=== PATIENT | female | born 1935 | race Caucasian/White ===

== ENCOUNTER 2019-02-26 08:58 | Inpatient (IN) | payer MEDICARE ==
[~2019-02-26] VITALS: Ht 165.1 cm; Wt 70.8 kg
[~2019-02-26 08:58] MED LIST: AMLO5TAB10 PO; ASPI-482 PO; CALC600T4 PO; FISH1CAP PO; FOLI1TAB16 PO; HYDR12.575 PO; MELO15TA23 PO; MULT1TAB6 PO; TRAM50TA PO; VALS1TAB22 PO
--- NOTE | 2019-02-26 09:12 | PHYS DOC ---
Past Medical History Past Medical History: Arthritis, Hypertension Past Surgical History: Cholecystectomy, Hysterectomy, Knee Replacement Additional Past Surgical Histo: colon resection, eye surgery Alcohol Use: None Drug Use: None Adult General Chief Complaint Chief Complaint: ABDOMINAL PAIN HPI HPI Patient is a 84 year old female that presents with dysuria and urinary frequency this been ongoing for several days. Subjective fever at home. The patient lives at home alone. The patient rates her pain as 5 out of 10 in severity and states sharp, the patient took a tramadol earlier due to her pain. Patient reports that she has a history of urinary tract infections. Review of Systems Review of Systems Constitutional: Reports fever or chills [] Eyes: Denies change in visual acuity, redness, or eye pain [] HENT: Denies nasal congestion or sore throat [] Respiratory: Denies cough or shortness of breath [] Cardiovascular: No additional information not addressed in HPI [] GI: Denies abdominal pain, nausea, vomiting, bloody stools or diarrhea [] : Reports dysuria and frequency. Musculoskeletal: Denies back pain or joint pain [] Integument: Denies rash or skin lesions [] Neurologic: Denies headache, focal weakness or sensory changes [] Endocrine: Denies polyuria or polydipsia [] Complete systems were reviewed and found to be within normal limits, except as documented in this note. Current Medications Current Medications Current Medications Medications (Trade) Dose Ordered Sig/Marino Start Time Stop Time Status Last Admin Dose Admin Ceftriaxone Sodium (Rocephin) 1 gm 1X ONCE 02/26/19 10:00 02/26/19 10:01 DC 02/26/19 10:06 1 GM Morphine Sulfate (Morphine Sulfate) 2 mg 1X ONCE 02/26/19 09:15 02/26/19 09:16 DC 02/26/19 09:33 2 MG Ondansetron HCl (Zofran) 4 mg 1X ONCE 02/26/19 09:15 02/26/19 09:16 DC 02/26/19 09:33 4 MG Allergies Allergies Allergies Coded Allergies Type Severity Reaction Last Updated Verified Sulfa (Sulfonamide Antibiotics) Allergy Intermediate 04/11/17 Yes levofloxacin Allergy Intermediate 04/11/17 Yes sucralfate Allergy Intermediate UNSURE 02/26/19 Yes I S O L A T I O N *CONTACT* Allergy Unknown 04/13/17 Yes Physical Exam Physical Exam Constitutional: Well developed, well nourished, no acute distress, non-toxic appearance. [] HENT: Normocephalic, atraumatic, bilateral external ears normal, oropharynx moist, no oral exudates, nose normal. [] Eyes: PERRLA, EOMI, conjunctiva normal, no discharge. [] Neck: Normal range of motion, no tenderness, supple, no stridor. [] Cardiovascular:Heart rate regular rhythm, no murmur [] Lungs & Thorax: Bilateral breath sounds clear to auscultation [] Abdomen: Bowel sounds normal, soft, lower pelvic tenderness, midline, no masses, no pulsatile masses. [] Skin: Warm, dry, no erythema, no rash. [] Back: No tenderness, no CVA tenderness. [] Extremities: No tenderness, no cyanosis, no clubbing, ROM intact, no edema. [] Neurologic: Alert and oriented X 3, normal motor function, normal sensory function, no focal deficits noted. [] Psychologic: Affect normal, judgement normal, mood normal. [] Current Patient Data Vital Signs Vital Signs Date Time Temp Pulse Resp B/P (MAP) Pulse Ox O2 Delivery O2 Flow Rate FiO2 02/26/19 10:06 16 02/26/19 09:07 97.6 70 159/70 (99) 99 Room Air 97.6 Lab Values Laboratory Tests Test 02/26/19 09:20 White Blood Count 6.4 x10^3/uL (4.0-11.0) Red Blood Count 4.15 x10^6/uL (3.50-5.40) Hemoglobin 13.2 g/dL (12.0-15.5) Hematocrit 38.3 % (36.0-47.0) Mean Corpuscular Volume 92 fL (79-100) Mean Corpuscular Hemoglobin 32 pg (25-35) Mean Corpuscular Hemoglobin Concent 35 g/dL (31-37) Red Cell Distribution Width 13.0 % (11.5-14.5) Platelet Count 210 x10^3/uL (140-400) Neutrophils (%) (Auto) 72 % (31-73) Lymphocytes (%) (Auto) 15 % (24-48) L Monocytes (%) (Auto) 10 % (0-9) H Eosinophils (%) (Auto) 2 % (0-3) Basophils (%) (Auto) 1 % (0-3) Neutrophils # (Auto) 4.6 x10^3/uL (1.8-7.7) Lymphocytes # (Auto) 1.0 x10^3/uL (1.0-4.8) Monocytes # (Auto) 0.6 x10^3/uL (0.0-1.1) Eosinophils # (Auto) 0.1 x10^3/uL (0.0-0.7) Basophils # (Auto) 0.0 x10^3/uL (0.0-0.2) Urine Collection Type Unknown Urine Color Yellow Urine Clarity Clear Urine pH 7.0 Urine Specific Preston <=1.005 Urine Protein Negative mg/dL (NEG-TRACE) Urine Glucose (UA) Negative mg/dL (NEG) Urine Ketones (Stick) Negative mg/dL (NEG) Urine Blood Large (NEG) Urine Nitrite Negative (NEG) Urine Bilirubin Negative (NEG) Urine Urobilinogen Dipstick 0.2 mg/dL (0.2 mg/dL) Urine Leukocyte Esterase Large (NEG) Urine RBC 3-5 /HPF (0-2) Urine WBC >40 /HPF (0-4) Urine Squamous Epithelial Cells Mod /LPF Urine Bacteria Moderate /HPF (0-FEW) Sodium Level 138 mmol/L (136-145) Potassium Level 4.0 mmol/L (3.5-5.1) Chloride Level 101 mmol/L (98-107) Carbon Dioxide Level 28 mmol/L (21-32) Anion Gap 9 (6-14) Blood Urea Nitrogen 12 mg/dL (7-20) Creatinine 0.9 mg/dL (0.6-1.0) Estimated GFR (Cockcroft-Gault) 59.8 BUN/Creatinine Ratio 13 (6-20) Glucose Level 76 mg/dL (70-99) Calcium Level 9.1 mg/dL (8.5-10.1) Total Bilirubin 0.6 mg/dL (0.2-1.0) Aspartate Amino Transferase (AST) 21 U/L (15-37) Alanine Aminotransferase (ALT) 16 U/L (14-59) Alkaline Phosphatase 51 U/L (46-116) Total Protein 6.7 g/dL (6.4-8.2) Albumin 3.6 g/dL (3.4-5.0) Albumin/Globulin Ratio 1.2 (1.0-1.7) Lipase 112 U/L (73-393) Laboratory Tests 02/26/19 09:20 Laboratory Tests 02/26/19 09:20 EKG EKG [] Radiology/Procedures Radiology/Procedures [] Course & Med Decision Making Course & Med Decision Making Pertinent Labs and Imaging studies reviewed. (See chart for details) Will obtain labs, and fluids. Urine shows >40 wbcs. Will treat with rocephin and contact hospitalist for admission. Discussed with Dr. Bruce at [phone] who accepts admission into hospital. Dragon Disclaimer Dragon Disclaimer This electronic medical record was generated, in whole or in part, using a voice recognition dictation system. Departure Departure Impression: Primary Impression: Urinary tract infection Disposition: ADMITTED INPATIENT Admitting Physician: JENNI Condition: STABLE Referrals: MANSOOR SRINIVASAN Jr, MD (PCP) Problem Qualifiers Primary Impression: Urinary tract infection Urinary tract infection type: acute cystitis Hematuria presence: without hematuria Qualified Codes: N30.00 - Acute cystitis without hematuria MIHAELA GROVER APRN Feb 26, 2019 09:12
[2019-02-26] MEDS ORDERED: MORPHINE SULFATE 2 MG/ML VIAL. IV ONE (09:15)
[2019-02-26] MEDS ORDERED: ONDANSETRON PF 4 MG/2 ML VIAL. IV ONE (09:15)
[2019-02-26 09:33] LABS: BASO % 1 % (0-3); BILIRUBIN,URINE NEGATIVE (NEG); CLARITY,URINE CLEAR; COLOR,URINE YELLOW; EOS # 0.1 x10^3/uL (0.0-0.7); EOS % 2 % (0-3); HEMATOCRIT 38.3 % (36.0-47.0); HEMOGLOBIN 13.2 g/dL (12.0-15.5); LYMPH % 15 % (24-48); MEAN CORPUSCULAR HEMOGLOBIN 32 pg (25-35); MEAN CORPUSCULAR HGB CONC 35 g/dL (31-37); MEAN CORPUSCULAR VOLUME 92 fL (79-100); MONO # 0.6 x10^3/uL (0.0-1.1); MONO % 10 % (0-9); NEUT # 4.6 x10^3/uL (1.8-7.7); NEUT % 72 % (31-73); NITRITE,URINE NEGATIVE (NEG); PLATELET COUNT 210 x10^3/uL (140-400); PROTEIN,URINE NEGATIVE (NEG-TRACE); RED BLOOD COUNT 4.15 x10^6/uL (3.50-5.40); UROBILINOGEN,URINE 0.2 mg/dL (0.2 mg/dL); WHITE BLOOD COUNT 6.4 x10^3/uL (4.0-11.0)
[2019-02-26 09:42] LABS: CALCIUM 9.1 mg/dL (8.5-10.1); CREATININE 0.9 mg/dL (0.6-1.0); GFR 59.8
[2019-02-26 09:46] LABS: SQUAMOUS EPITHELIAL CELL,UR MOD /LPF
[2019-02-26 09:47] LABS: BACTERIA,URINE MODERATE /HPF (0-FEW); WBC,URINE >40 /HPF (0-4)
[2019-02-26 09:48] LABS: ALBUMIN 3.6 g/dL (3.4-5.0); ALBUMIN/GLOBULIN RATIO 1.2 (1.0-1.7); TOTAL BILIRUBIN 0.6 mg/dL (0.2-1.0); TOTAL PROTEIN 6.7 g/dL (6.4-8.2)
[2019-02-26] MEDS ORDERED: cefTRIAXone IV Push 1 GM VIAL. IVP ONE (10:00)
--- NOTE | 2019-02-26 10:26 | PDOC1 ---
History and Physical Date of Admission Date of Admission DATE: 02/26/19 TIME: 10:26 Identification/Chief Complaint Chief Complaint SEEN IN ER , 84 year old female that presents with moderate -severe dysuria and urinary frequency this been ongoing for several days. fever at home. The patient lives at home alone., rates her suprapubic pain as 5 out of 10 in severity and states sharp, the patient took a tramadol earlier due to her pain. reports that she has a history of urinary tract infections. Past Medical History Past Medical History Past Medical History Past Medical History: Arthritis, Hypertension Past Surgical History: Cholecystectomy, Hysterectomy, Knee Replacement Additional Past Surgical Histo: colon resection, eye surgery Alcohol Use: None Drug Use: None family hx htn Cardiovascular: HTN Pulmonary: No pertinent hx CENTRAL NERVOUS SYSTEM: Other GI: Diverticulosis, GERD Heme/Onc: No pertinent hx Hepatobiliary: No pertinent hx Psych: No pertinent hx Musculoskeletal: Osteoarthritis Rheumatologic: No pertinent hx Infectious disease: No pertinent hx Renal/: No pertinent hx Endocrine: No pertinent hx Past Surgical History Past Surgical History: Appendectomy, Cholecystectomy, Cataract Removal, Total knee replacement, Colon Resection, Other Family History Family History: Hypertension Social History Smoke: No ALCOHOL: none Drugs: None Current Problem List Problem List Problems Medical Problems: (1) Urinary tract infection Status: Acute Current Medications Current Medications Current Medications Morphine Sulfate (Morphine Sulfate) 2 mg 1X ONCE IV Last administered on 02/26/19at 09:33; Start 02/26/19 at 09:15; Stop 02/26/19 at 09:16; Status DC Ondansetron HCl (Zofran) 4 mg 1X ONCE IV Last administered on 02/26/19at 09:33; Start 02/26/19 at 09:15; Stop 02/26/19 at 09:16; Status DC Ceftriaxone Sodium (Rocephin) 1 gm 1X ONCE IVP Last administered on 02/26/19at 10:06; Start 02/26/19 at 10:00; Stop 02/26/19 at 10:01; Status DC Active Scripts Active Reported Folic Acid 1 Mg Tablet 1 Tab PO HS Fish Oil 1,200 Mg Fish Oil (Fish Oil/Dha/Epa) 1 Each Capsule 1 Each PO HS Calcium (Calcium Carbonate) 600 Mg Tablet 600 Mg PO HS Centrum Complete Multivit Tab (Multivitamin/Iron/Folic Acid) 1 Each Tablet 1 Each PO HS Aspir 81 (Aspirin) 81 Mg Tablet.dr 81 Mg PO QODAY Amlodipine Besylate 5 Mg Tablet 5 Mg PO Hydrochlorothiazide Capsule (Hydrochlorothiazide) 12.5 Mg Capsule 12.5 Mg PO QODAY Diovan Hct 320-25 Mg Tablet (Valsartan/Hydrochlorothiazide) 1 Each Tablet 1 Each PO Allergies Allergies: Coded Allergies: Sulfa (Sulfonamide Antibiotics) (Verified Allergy, Intermediate, 04/11/17) levofloxacin (Verified Allergy, Intermediate, 04/11/17) sucralfate (Verified Allergy, Intermediate, UNSURE, 02/26/19) I S O L A T I O N *CONTACT* (Verified Allergy, Unknown, 04/13/17) mrsa ROS Review of System Review of Systems Review of Systems Constitutional: Reports fever // chills [] Eyes: Denies change in visual acuity, redness, or eye pain [] HENT: Denies nasal congestion or sore throat [] Respiratory: Denies cough or shortness of breath [] Cardiovascular: No additional information not addressed in HPI [] GI: Denies abdominal pain, nausea, vomiting, bloody stools or diarrhea [] : Reports dysuria and frequency. Musculoskeletal: Denies back pain or joint pain [] Integument: Denies rash or skin lesions [] Neurologic: Denies headache, focal weakness or sensory changes [] Endocrine: Denies polyuria or polydipsia [] 14 PT systems were reviewed and found to be within normal limits, except as documented Respiratory: No: Cough, Hemoptysis, Orthopnea, Pleuritic Pain, Shortness of breath, SOB with excertion, Sputum Changes, Stridor, Tachypnea, Wheezing, Other Gastrointestinal: Yes Abdominal Pain Musculoskeletal: Yes Joint Stiffness Physical Exam Physical Exam Physical Exam Physical Exam Constitutional: Well developed, well nourished, MILD acute distress, non-toxic appearance. [] HENT: Normocephalic, atraumatic, bilateral external ears normal, oropharynx moist, no oral exudates, nose normal. [] Eyes: PERRLA, EOMI, conjunctiva normal, no discharge. [] Neck: Normal range of motion, no tenderness, supple, no stridor. [] Cardiovascular:Heart rate regular rhythm, no murmur [] Lungs & Thorax: Bilateral breath sounds clear to auscultation [] Abdomen: Bowel sounds normal, soft, lower pelvic tenderness, midline, no masses, no pulsatile masses. [] Skin: Warm, dry, no erythema, no rash. [] Back: No tenderness, no CVA tenderness. [] Extremities: No tenderness, no cyanosis, no clubbing, ROM intact, no edema. [] Neurologic: Alert and oriented X 3, normal motor function, normal sensory function, no focal deficits noted. [] Psychologic: Affect normal, judgement normal, mood normal. [] General: Alert, Oriented X3, Cooperative, mild distress HEENT: PERRLA, EOMI, Mucous membr. moist/pink Lungs: Clear to auscultation, Normal air movement Breasts: Not examined Rectal Exam: not examined PELVIC: Examination not indicated Extremities: No clubbing, No cyanosis Skin: No rashes Neuro: Normal speech, Cranial nerves 3-12 NL Psych/Mental Status: Mental status NL, Mood NL Vitals Vitals Vital Signs Date Time Temp Pulse Resp B/P (MAP) Pulse Ox O2 Delivery O2 Flow Rate FiO2 02/26/19 10:06 16 02/26/19 09:07 97.6 70 159/70 (99) 99 Room Air 97.6 Labs Labs Laboratory Tests Test 02/26/19 09:20 White Blood Count 6.4 x10^3/uL (4.0-11.0) Red Blood Count 4.15 x10^6/uL (3.50-5.40) Hemoglobin 13.2 g/dL (12.0-15.5) Hematocrit 38.3 % (36.0-47.0) Mean Corpuscular Volume 92 fL (79-100) Mean Corpuscular Hemoglobin 32 pg (25-35) Mean Corpuscular Hemoglobin Concent 35 g/dL (31-37) Red Cell Distribution Width 13.0 % (11.5-14.5) Platelet Count 210 x10^3/uL (140-400) Neutrophils (%) (Auto) 72 % (31-73) Lymphocytes (%) (Auto) 15 % (24-48) Monocytes (%) (Auto) 10 % (0-9) Eosinophils (%) (Auto) 2 % (0-3) Basophils (%) (Auto) 1 % (0-3) Neutrophils # (Auto) 4.6 x10^3/uL (1.8-7.7) Lymphocytes # (Auto) 1.0 x10^3/uL (1.0-4.8) Monocytes # (Auto) 0.6 x10^3/uL (0.0-1.1) Eosinophils # (Auto) 0.1 x10^3/uL (0.0-0.7) Basophils # (Auto) 0.0 x10^3/uL (0.0-0.2) Urine Collection Type Unknown Urine Color Yellow Urine Clarity Clear Urine pH 7.0 Urine Specific [place] <=1.005 Urine Protein Negative mg/dL (NEG-TRACE) Urine Glucose (UA) Negative mg/dL (NEG) Urine Ketones (Stick) Negative mg/dL (NEG) Urine Blood Large (NEG) Urine Nitrite Negative (NEG) Urine Bilirubin Negative (NEG) Urine Urobilinogen Dipstick 0.2 mg/dL (0.2 mg/dL) Urine Leukocyte Esterase Large (NEG) Urine RBC 3-5 /HPF (0-2) Urine WBC >40 /HPF (0-4) Urine Squamous Epithelial Cells Mod /LPF Urine Bacteria Moderate /HPF (0-FEW) Sodium Level 138 mmol/L (136-145) Potassium Level 4.0 mmol/L (3.5-5.1) Chloride Level 101 mmol/L (98-107) Carbon Dioxide Level 28 mmol/L (21-32) Anion Gap 9 (6-14) Blood Urea Nitrogen 12 mg/dL (7-20) Creatinine 0.9 mg/dL (0.6-1.0) Estimated GFR (Cockcroft-Gault) 59.8 BUN/Creatinine Ratio 13 (6-20) Glucose Level 76 mg/dL (70-99) Calcium Level 9.1 mg/dL (8.5-10.1) Total Bilirubin 0.6 mg/dL (0.2-1.0) Aspartate Amino Transf (AST/SGOT) 21 U/L (15-37) Alanine Aminotransferase (ALT/SGPT) 16 U/L (14-59) Alkaline Phosphatase 51 U/L (46-116) Total Protein 6.7 g/dL (6.4-8.2) Albumin 3.6 g/dL (3.4-5.0) Albumin/Globulin Ratio 1.2 (1.0-1.7) Lipase 112 U/L (73-393) Laboratory Tests Test 02/26/19 09:20 White Blood Count 6.4 x10^3/uL (4.0-11.0) Red Blood Count 4.15 x10^6/uL (3.50-5.40) Hemoglobin 13.2 g/dL (12.0-15.5) Hematocrit 38.3 % (36.0-47.0) Mean Corpuscular Volume 92 fL (79-100) Mean Corpuscular Hemoglobin 32 pg (25-35) Mean Corpuscular Hemoglobin Concent 35 g/dL (31-37) Red Cell Distribution Width 13.0 % (11.5-14.5) Platelet Count 210 x10^3/uL (140-400) Neutrophils (%) (Auto) 72 % (31-73) Lymphocytes (%) (Auto) 15 % (24-48) Monocytes (%) (Auto) 10 % (0-9) Eosinophils (%) (Auto) 2 % (0-3) Basophils (%) (Auto) 1 % (0-3) Neutrophils # (Auto) 4.6 x10^3/uL (1.8-7.7) Lymphocytes # (Auto) 1.0 x10^3/uL (1.0-4.8) Monocytes # (Auto) 0.6 x10^3/uL (0.0-1.1) Eosinophils # (Auto) 0.1 x10^3/uL (0.0-0.7) Basophils # (Auto) 0.0 x10^3/uL (0.0-0.2) Urine Collection Type Unknown Urine Color Yellow Urine Clarity Clear Urine pH 7.0 Urine Specific [place] <=1.005 Urine Protein Negative mg/dL (NEG-TRACE) Urine Glucose (UA) Negative mg/dL (NEG) Urine Ketones (Stick) Negative mg/dL (NEG) Urine Blood Large (NEG) Urine Nitrite Negative (NEG) Urine Bilirubin Negative (NEG) Urine Urobilinogen Dipstick 0.2 mg/dL (0.2 mg/dL) Urine Leukocyte Esterase Large (NEG) Urine RBC 3-5 /HPF (0-2) Urine WBC >40 /HPF (0-4) Urine Squamous Epithelial Cells Mod /LPF Urine Bacteria Moderate /HPF (0-FEW) Sodium Level 138 mmol/L (136-145) Potassium Level 4.0 mmol/L (3.5-5.1) Chloride Level 101 mmol/L (98-107) Carbon Dioxide Level 28 mmol/L (21-32) Anion Gap 9 (6-14) Blood Urea Nitrogen 12 mg/dL (7-20) Creatinine 0.9 mg/dL (0.6-1.0) Estimated GFR (Cockcroft-Gault) 59.8 BUN/Creatinine Ratio 13 (6-20) Glucose Level 76 mg/dL (70-99) Calcium Level 9.1 mg/dL (8.5-10.1) Total Bilirubin 0.6 mg/dL (0.2-1.0) Aspartate Amino Transf (AST/SGOT) 21 U/L (15-37) Alanine Aminotransferase (ALT/SGPT) 16 U/L (14-59) Alkaline Phosphatase 51 U/L (46-116) Total Protein 6.7 g/dL (6.4-8.2) Albumin 3.6 g/dL (3.4-5.0) Albumin/Globulin Ratio 1.2 (1.0-1.7) Lipase 112 U/L (73-393) VTE Prophylaxis Ordered VTE Prophylaxis Devices: Yes VTE Pharmacological Prophylaxi: Yes Assessment/Plan Assessment/Plan Impression: Urinary tract infection SUPRAPUBIC PAIN HTN PLAN ADMIT EMPERIC IV ANTIBIOTICS BLOOD CULT URINE CULTURE HOME MEDS CONT ct abd/ pelvis IV FLUID SUPPORT, HYDRATION 55 MIN PT EXAM, CHART REVIEW, > 50% OF TIME SPENT WITH EXAM, CHART REVIEW, PT CARE COORDINATION JOSE CRUZ SANTANA MD Feb 26, 2019 10:26
[2019-02-26] MEDS ORDERED: fentaNYL PF VIAL 100 MCG/2 ML VIAL IV PRN (10:30)
[2019-02-26] MEDS ORDERED: ONDANSETRON PF 4 MG/2 ML VIAL. IV PRN ×2 (10:30→11:00)
[2019-02-26 11:00] VITALS: BP 132/54
[2019-02-26] MEDS ORDERED: ALBUTEROL SULFATE 2.5 MG/3 ML NEBU. NEB PRN (11:00)
[2019-02-26] MEDS ORDERED: DOCUSATE SODIUM 100 MG CAPSULE. PO PRN (11:00)
[2019-02-26] MEDS ORDERED: MAG HYDROX/ALUMINUM HYD/SIMETH 30 ML ORAL.SUSP PO PRN (11:00)
[2019-02-26] MEDS ORDERED: cloNIDine HCL 0.1 MG TABLET PO PRN (11:00)
[2019-02-26] MEDS ORDERED: LORazepam 0.5 MG TABLET PO PRN (11:00)
[2019-02-26] MEDS ORDERED: ACETAMINOPHEN 325 MG TABLET. PO PRN (11:00)
[2019-02-26] MEDS ORDERED: 0.9 % SODIUM CHLORIDE 10 ML DISP.SYRIN. IV PRN (11:00)
[2019-02-26] MEDS: LOSARTAN POTASSIUM 50 MG TABLET. PO SCH (12:00)
[2019-02-26] MEDS: amLODIPine BESYLATE 5 MG TABLET PO SCH (12:00)
[2019-02-26] MEDS ORDERED: hydroCHLOROthiazide 12.5 MG CAPSULE PO SCH (12:00)
[2019-02-26] MEDS ORDERED: ASPIRIN ENTERIC COATED 81 MG TABLET.DR. PO SCH (12:00)
[2019-02-26] MEDS: MULTIVITAMIN with MINERAL TABLET. PO SCH (12:00)
[2019-02-26] MEDS: IV NORMAL SALINE 1000ML BAG 1,000 ML IV SCH (12:56)
[2019-02-26] MEDS: ENOXAPARIN 40 MG/0.4 ML SYRINGE. SQ SCH (12:57)
--- NOTE | 2019-02-26 14:55 | RAD ---
Examination: CT ABDOMEN PELVIS WO CONTRAST History: Abdominal pain Comparison/Correlation: 04/14/2017 CT abdomen and pelvis with contrast Findings: Axial images of the abdomen and pelvis were obtained without contrast. Minimal linear atelectasis or scarring at the lingula noted. Hepatic dome was not fully included limiting assessment at the very superior aspect. Common bile duct distention of up to 1.5 cm noted. Visualized pancreas is unremarkable. Adrenal glands are unremarkable. Left renal lower pole cyst noted. No radiopaque collecting system calculi. Urinary bladder is unremarkable. Diverticulosis is present involving the colon without acute inflammatory findings. No bowel obstruction. No inflammatory change about the cecum. Appendix is not definitely delineated. No extraluminal gas. Anterolisthesis of L4 relation L5 by less than grade 1 extent is noted. Significant disc space narrowing from L4 to S1 noted. T10 kyphoplasty noted. Impression: Diverticulosis. No acute inflammatory process. Cholecystectomy. Significant distention of the common bile duct is again seen likely related to reservoir effect and is similar compared to previous CT exam of 04/14/2017. PQRS Compliance Statement: One or more of the following individualized dose reduction techniques were utilized for this examination: 1. Automated exposure control 2. Adjustment of the mA and/or kV according to patient size 3. Use of iterative reconstruction technique Electronically signed by: Dangelo Jha MD (02/26/2019 2:52 PM) [facility]
[2019-02-26 15:00] VITALS: BP_SYST 114; BP_SYST 123; BP_DIAS 53; BP_DIAS 71
[2019-02-26 19:00] VITALS: BP 96/45
[2019-02-26] MEDS ORDERED: ATOR10TA60 PO (20:42)
[2019-02-26] MEDS ORDERED: OMEGA-3 FATTY ACIDS/FISH OIL 1,000 MG CAPSULE. PO SCH (21:00)
[2019-02-26] MEDS ORDERED: CALCIUM CARBONATE 500 MG TABLET PO SCH (21:00)
[2019-02-26] MEDS ORDERED: FOLIC ACID 1 MG TABLET. PO SCH (21:00)
[2019-02-26 23:00] VITALS: BP 79/46
[2019-02-26 23:43] VITALS: BP 122/54
[2019-02-27] MEDS: IV NORMAL SALINE 1000ML BAG 1,000 ML IV SCH (01:01)
[2019-02-27 03:10] VITALS: BP 128/46
[2019-02-27 07:00] VITALS: BP 115/46
[2019-02-27 07:52] LABS: BASO % 1 % (0-3); EOS # 0.1 x10^3/uL (0.0-0.7); EOS % 2 % (0-3); HEMATOCRIT 34.9 % (36.0-47.0); LYMPH # 1.2 x10^3/uL (1.0-4.8); LYMPH % 25 % (24-48); MEAN CORPUSCULAR HEMOGLOBIN 32 pg (25-35); MEAN CORPUSCULAR HGB CONC 34 g/dL (31-37); MEAN CORPUSCULAR VOLUME 92 fL (79-100); MONO # 0.6 x10^3/uL (0.0-1.1); MONO % 11 % (0-9); NEUT % 61 % (31-73); PLATELET COUNT 185 x10^3/uL (140-400); RED BLOOD COUNT 3.79 x10^6/uL (3.50-5.40); RED CELL DISTRIBUTION WIDTH 12.8 % (11.5-14.5)
[2019-02-27] MEDS ORDERED: cefTRIAXone IV Push 1 GM VIAL. IVP SCH (08:00)
[2019-02-27 08:10] LABS: CALCIUM 8.7 mg/dL (8.5-10.1); CREATININE 0.8 mg/dL (0.6-1.0); GFR 68.5
[2019-02-27] MEDS: amLODIPine BESYLATE 5 MG TABLET PO SCH (08:46)
[2019-02-27] MEDS: MULTIVITAMIN with MINERAL TABLET. PO SCH (08:46)
[2019-02-27] MEDS: LOSARTAN POTASSIUM 50 MG TABLET. PO SCH (08:47)
[2019-02-27] MEDS: ENOXAPARIN 40 MG/0.4 ML SYRINGE. SQ SCH (08:48)
[2019-02-27] MEDS ORDERED: PHEN100T82 PO (10:09)
[2019-02-27] MEDS ORDERED: CEFU500T46 PO (10:09)
--- NOTE | 2019-02-27 10:12 | PDOC3 ---
Discharge Summary Visit Information Date of Admission: Feb 26, 2019 Date of Discharge: Feb 27, 2019 Admitting Diagnosis Comment: symptomatic uti Final Diagnosis Problems Medical Problems: (1) HTN (hypertension) Status: Chronic (2) Suprapubic pain Status: Acute (3) Urinary tract infection Status: Acute Brief Hospital Course Allergies Allergies Coded Allergies Type Severity Reaction Last Updated Verified Sulfa (Sulfonamide Antibiotics) Allergy Intermediate 04/11/17 Yes levofloxacin Allergy Intermediate 04/11/17 Yes sucralfate Allergy Intermediate UNSURE 02/26/19 Yes I S O L A T I O N *CONTACT* Allergy Unknown 04/13/17 Yes Vital Signs Vital Signs Date Time Temp Pulse Resp B/P (MAP) Pulse Ox O2 Delivery O2 Flow Rate FiO2 02/27/19 08:48 70 115/46 02/27/19 07:00 98.5 18 96 Nasal Cannula 2.0 98.5 Lab Results Laboratory Tests Test 02/26/19 09:20 02/26/19 12:00 02/27/19 06:05 White Blood Count 6.4 x10^3/uL (4.0-11.0) 5.0 x10^3/uL (4.0-11.0) Red Blood Count 4.15 x10^6/uL (3.50-5.40) 3.79 x10^6/uL (3.50-5.40) Hemoglobin 13.2 g/dL (12.0-15.5) 12.0 g/dL (12.0-15.5) Hematocrit 38.3 % (36.0-47.0) 34.9 % (36.0-47.0) Mean Corpuscular Volume 92 fL (79-100) 92 fL (79-100) Mean Corpuscular Hemoglobin 32 pg (25-35) 32 pg (25-35) Mean Corpuscular Hemoglobin Concent 35 g/dL (31-37) 34 g/dL (31-37) Red Cell Distribution Width 13.0 % (11.5-14.5) 12.8 % (11.5-14.5) Platelet Count 210 x10^3/uL (140-400) 185 x10^3/uL (140-400) Neutrophils (%) (Auto) 72 % (31-73) 61 % (31-73) Lymphocytes (%) (Auto) 15 % (24-48) 25 % (24-48) Monocytes (%) (Auto) 10 % (0-9) 11 % (0-9) Eosinophils (%) (Auto) 2 % (0-3) 2 % (0-3) Basophils (%) (Auto) 1 % (0-3) 1 % (0-3) Neutrophils # (Auto) 4.6 x10^3/uL (1.8-7.7) 3.0 x10^3/uL (1.8-7.7) Lymphocytes # (Auto) 1.0 x10^3/uL (1.0-4.8) 1.2 x10^3/uL (1.0-4.8) Monocytes # (Auto) 0.6 x10^3/uL (0.0-1.1) 0.6 x10^3/uL (0.0-1.1) Eosinophils # (Auto) 0.1 x10^3/uL (0.0-0.7) 0.1 x10^3/uL (0.0-0.7) Basophils # (Auto) 0.0 x10^3/uL (0.0-0.2) 0.0 x10^3/uL (0.0-0.2) Urine Collection Type Unknown Urine Color Yellow Urine Clarity Clear Urine pH 7.0 Urine Specific [place] <=1.005 Urine Protein Negative mg/dL (NEG-TRACE) Urine Glucose (UA) Negative mg/dL (NEG) Urine Ketones (Stick) Negative mg/dL (NEG) Urine Blood Large (NEG) Urine Nitrite Negative (NEG) Urine Bilirubin Negative (NEG) Urine Urobilinogen Dipstick 0.2 mg/dL (0.2 mg/dL) Urine Leukocyte Esterase Large (NEG) Urine RBC 3-5 /HPF (0-2) Urine WBC >40 /HPF (0-4) Urine Squamous Epithelial Cells Mod /LPF Urine Bacteria Moderate /HPF (0-FEW) Sodium Level 138 mmol/L (136-145) 139 mmol/L (136-145) Potassium Level 4.0 mmol/L (3.5-5.1) 4.0 mmol/L (3.5-5.1) Chloride Level 101 mmol/L (98-107) 105 mmol/L (98-107) Carbon Dioxide Level 28 mmol/L (21-32) 26 mmol/L (21-32) Anion Gap 9 (6-14) 8 (6-14) Blood Urea Nitrogen 12 mg/dL (7-20) 10 mg/dL (7-20) Creatinine 0.9 mg/dL (0.6-1.0) 0.8 mg/dL (0.6-1.0) Estimated GFR (Cockcroft-Gault) 59.8 68.5 BUN/Creatinine Ratio 13 (6-20) Glucose Level 76 mg/dL (70-99) 82 mg/dL (70-99) Calcium Level 9.1 mg/dL (8.5-10.1) 8.7 mg/dL (8.5-10.1) Total Bilirubin 0.6 mg/dL (0.2-1.0) Aspartate Amino Transf (AST/SGOT) 21 U/L (15-37) Alanine Aminotransferase (ALT/SGPT) 16 U/L (14-59) Alkaline Phosphatase 51 U/L (46-116) Total Protein 6.7 g/dL (6.4-8.2) Albumin 3.6 g/dL (3.4-5.0) Albumin/Globulin Ratio 1.2 (1.0-1.7) Lipase 112 U/L (73-393) Lactic Acid Level 1.4 mmol/L (0.4-2.0) Laboratory Tests Test 02/26/19 12:00 02/27/19 06:05 Lactic Acid Level 1.4 mmol/L (0.4-2.0) White Blood Count 5.0 x10^3/uL (4.0-11.0) Red Blood Count 3.79 x10^6/uL (3.50-5.40) Hemoglobin 12.0 g/dL (12.0-15.5) Hematocrit 34.9 % (36.0-47.0) Mean Corpuscular Volume 92 fL (79-100) Mean Corpuscular Hemoglobin 32 pg (25-35) Mean Corpuscular Hemoglobin Concent 34 g/dL (31-37) Red Cell Distribution Width 12.8 % (11.5-14.5) Platelet Count 185 x10^3/uL (140-400) Neutrophils (%) (Auto) 61 % (31-73) Lymphocytes (%) (Auto) 25 % (24-48) Monocytes (%) (Auto) 11 % (0-9) Eosinophils (%) (Auto) 2 % (0-3) Basophils (%) (Auto) 1 % (0-3) Neutrophils # (Auto) 3.0 x10^3/uL (1.8-7.7) Lymphocytes # (Auto) 1.2 x10^3/uL (1.0-4.8) Monocytes # (Auto) 0.6 x10^3/uL (0.0-1.1) Eosinophils # (Auto) 0.1 x10^3/uL (0.0-0.7) Basophils # (Auto) 0.0 x10^3/uL (0.0-0.2) Sodium Level 139 mmol/L (136-145) Potassium Level 4.0 mmol/L (3.5-5.1) Chloride Level 105 mmol/L (98-107) Carbon Dioxide Level 26 mmol/L (21-32) Anion Gap 8 (6-14) Blood Urea Nitrogen 10 mg/dL (7-20) Creatinine 0.8 mg/dL (0.6-1.0) Estimated GFR (Cockcroft-Gault) 68.5 Glucose Level 82 mg/dL (70-99) Calcium Level 8.7 mg/dL (8.5-10.1) Brief Hospital Course Ms. 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, I educated i cant ff up urine cx, if some resistance (given uti's qyearly), IF no better with my PO PCN, back to er or urgent care - she understands Allergy to cipro and bactrim - unrecalled reaction pt seen and examined consult; none PRoc none Disp[o: home independent Discharge Information Condition at Discharge: Improved, Stable Disposition/Orders: D/C to Home Scheduled Amlodipine Besylate (Amlodipine Besylate) 5 Mg Tablet, 5 MG PO DAILY for htn, (Reported) Entered as Reported by: AMADA CINTRON on 10/09/13845 Last Taken: Unknown Dose on 02/26/19 08 Last Action: Edited on 02/26/191212 by RYAN MONTELONGO Aspirin (Aspir 81) 81 Mg Tablet.dr, 81 MG PO QODAY for blood thinner, (Reported) Entered as Reported by: AMADA CINTRON on 10/09/13845 Last Taken: Unknown Dose on 02/25/192099 Last Action: Last Taken Edited on 02/26/191212 by RYAN MONTELONGO Atorvastatin Calcium (Atorvastatin Calcium) 10 Mg Tablet, 10 MG PO HS for FOR CHOLESTEROL, #30 Ref 0 (Reported) Entered as Reported by: PARDEEP ROSE on 02/26/192041 Last Action: New Order on 02/26/192041 by PARDEEP ROSE Calcium Carbonate (Calcium) 600 Mg Tablet, 600 MG PO HS for supplement, (Reported) Entered as Reported by: ARTURO SPENCE on 04/11/171151 Last Taken: Unknown Dose on 02/25/192099 Last Action: Last Taken Edited on 02/26/191212 by RYNA MONTELONGO Cefuroxime Axetil (Cefuroxime) 500 Mg Tablet, 1 TAB PO BID for uti, #20 Prescribed by: ITALO VALDOVINOS on 02/27/19 1009 Fish Oil/Dha/Epa (Fish Oil 1,200 Mg Fish Oil) 1 Each Capsule, 1 EACH PO HS for supplement, (Reported) Entered as Reported by: ARTURO SPENCE on 04/11/171151 Last Taken: Unknown Dose on 02/25/192099 Last Action: Last Taken Edited on 02/26/191212 by RYAN MONTELONGO Folic Acid (Folic Acid) 1 Mg Tablet, 1 TAB PO HS for supplement, #90 Ref 1 (Reported) Entered as Reported by: ARTURO SPENCE on 04/11/171151 Last Taken: Unknown Dose on 02/25/192099 Last Action: Last Taken Edited on 02/26/191212 by RYAN MONTELONGO Hydrochlorothiazide (Hydrochlorothiazide Capsule ) 12.5 Mg Capsule, 12.5 MG PO QODAY for htn, (Reported) Entered as Reported by: AMADA CINTRON on 10/09/13845 Last Taken: Unknown Dose on Unknown Date & Time Last Action: Last Taken Edited on 02/26/191212 by RYAN MONTELONGO Multivitamin/Iron/Folic Acid (Centrum Complete Multivit Tab) 1 Each Tablet, 1 EACH PO HS for supplement, (Reported) Entered as Reported by: ARTURO SPENCE on 04/11/17 1152 Last Taken: Unknown Dose on 02/25/19 2100 Last Action: Last Taken Edited on 02/26/191212 by RYAN MONTELONGO Phenazopyridine Hcl (Pyridium) 100 Mg Tablet, 100 MG PO TID for urinary pain, #60 Prescribed by: ITALO VALDOVINOS on 02/27/19 1009 Valsartan/Hydrochlorothiazide (Diovan Hct 320-25 Mg Tablet) 1 Each Tablet, 1 EACH PO DAILY for htn, (Reported) Entered as Reported by: AMADA CINTRON on 10/09/13 0846 Last Taken: Unknown Dose on 02/26/19 0800 Last Action: Edited on 02/26/191212 by ITALO LACKEY MD Feb 27, 2019 10:12
[2019-02-27 10:48] VITALS: BP 126/60
--- NOTE | 2019-02-27 13:02 | NUR ---
Discharge Note: PT DISCHARGED HOME WITH SELF CARE. PT LEFT FACILITY VIA PRIVATE VEHICLE WITH DAUGHTER AT 1200. PT STABLE AND ALERT UPON DISCHARGE. PT PIV REMOVED FROM L AC WITHOUT COMPLICATIONS, BANDAGE APPLIED. PT EDUCATED ABOUT DISCHARGE MEDICATIONS, DISCHARGE INSTRUCTIONS, AND FOLLOW-UP INSTRUCTIONS. PT EDUCATED ABOUT SYPMTOMS WORSENING. NO CONCERNS VOICED AT THIS TIME. PT LEFT WITH ALL BELONGINGS. NIKI MACNIA Discharge instructions and discharge home medications reviewed with Patient and a copy given. All questions have been answered and understanding verbalized.
== END 2019-02-27 13:07 | disposition home or self-care (01) | DRG 690 ==
LOC: ER 08:58 → 5 SOUTH 10:18
PROVIDERS: ADMIT Family Medicine; ATTEND Family Medicine
DX: N39.0 Urinary tract infection, site not specified (principal); Z96.659 Presence of unspecified artificial knee joint; I10 Essential (primary) hypertension; M19.90 Unspecified osteoarthritis, unspecified site; K57.90 Diverticulosis of intestine, part unspecified, without perforation or abscess without bleeding; K21.9 Gastro-esophageal reflux disease without esophagitis; Z82.49 Family history of ischemic heart disease and other diseases of the circulatory system; Z90.710 Acquired absence of both cervix and uterus; Z90.49 Acquired absence of other specified parts of digestive tract; Z87.440 Personal history of urinary (tract) infections; Z88.1 Allergy status to other antibiotic agents; Z88.8 Allergy status to other drugs, medicaments and biological substances
CPT/HCPCS: 36415; 74176; 80048; 80053; 81001; 83605; 83690; 85025; 87040; 87086; 94640; 96374; 96375; J0696; J1650; J2270; J2405; J3010; J7030; 99285-25; G0378

== ENCOUNTER 2019-03-13 15:10 | Emergency (ER) | payer MEDICARE ==
[~2019-03-13] VITALS: Ht 165.1 cm; Wt 68.9 kg
[~2019-03-13 15:10] MED LIST changes: +ATOR10TA60 PO; +CEFU500T46 PO; +PHEN100T82 PO
[2019-03-13] MEDS ORDERED: ACETAMINOPHEN 500 MG TABLET PO ONE (15:45)
--- NOTE | 2019-03-13 15:52 | PHYS DOC ---
Past Medical History Past Medical History: Arthritis, Hypertension Past Surgical History: Cholecystectomy, Hysterectomy, Knee Replacement Additional Past Surgical Histo: colon resection, eye surgery Alcohol Use: None Drug Use: None Adult General Chief Complaint Chief Complaint: MECHANICAL FALL HPI HPI Patient is a 84 year old female with history of hypertension on a baby aspirin every other day who presents to the ED today to be evaluated after falling. Patient states she was walking in her driveway when she stepped on the side of the driveway and fell. She states she hit her face on a flower garden step. Patient denies any loss of consciousness. Denies any neck pain. States she was a ble to get up and walk. She had seen an eye doctor earlier today and had her eyes dilated. She is complaining of facial contusion specifically on the left side of the face. Review of Systems Review of Systems Constitutional: Denies fever or chills [] Eyes: Denies change in visual acuity, redness, or eye pain [] HENT: Denies nasal congestion or sore throat [] Respiratory: Denies cough or shortness of breath [] Cardiovascular: No additional information not addressed in HPI [] GI: Denies abdominal pain, nausea, vomiting, bloody stools or diarrhea [] : Denies dysuria or hematuria [] Musculoskeletal: Denies back pain or joint pain [] Integument: Denies rash or skin lesions [] Neurologic: Denies headache, focal weakness or sensory changes [] Endocrine: Denies polyuria or polydipsia [] All other systems were reviewed and found to be within normal limits, except as documented in this note. Current Medications Current Medications Current Medications Medications (Trade) Dose Ordered Sig/Marino Start Time Stop Time Status Last Admin Dose Admin Acetaminophen (Tylenol) 500 mg 1X ONCE 03/13/19 15:45 03/13/19 15:46 DC 03/13/19 16:02 500 MG Allergies Allergies Allergies Coded Allergies Type Severity Reaction Last Updated Verified Sulfa (Sulfonamide Antibiotics) Allergy Intermediate 04/11/17 Yes levofloxacin Allergy Intermediate 04/11/17 Yes sucralfate Allergy Intermediate UNSURE 02/26/19 Yes I S O L A T I O N *CONTACT* Allergy Unknown 04/13/17 Yes Physical Exam Physical Exam Constitutional: Well developed, well nourished, no acute distress, non-toxic appearance. [] HENT: Normocephalic, bilateral external ears normal, oropharynx moist, Left cheek with mild swelling and bruising. There is trace bleeding coming from a couple areas on the face, no obvious open laceration noted. Patient is edentulous Eyes: PERRLA, EOMI, conjunctiva normal, no discharge. [] Neck: Normal range of motion, no tenderness, supple, no stridor. [] Cardiovascular:Heart rate regular rhythm, no murmur [] Lungs & Thorax: Bilateral breath sounds clear to auscultation [] Abdomen: Bowel sounds normal, soft, no tenderness, no masses, no pulsatile masses. [] Skin: Warm, dry, no erythema, no rash. [] Back: No tenderness, no CVA tenderness. [] Extremities: No tenderness, no cyanosis, no clubbing, ROM intact, no edema. [] Neurologic: Alert and oriented X 3, normal motor function, normal sensory function, no focal deficits noted. Cranial nerves II through XII intact Psychologic: Affect normal, judgement normal, mood normal. [] Current Patient Data Vital Signs Vital Signs Date Time Temp Pulse Resp B/P (MAP) Pulse Ox O2 Delivery O2 Flow Rate FiO2 03/13/19 15:28 98.1 68 20 152/73 (99) 96 Room Air 98.1 EKG EKG [] Radiology/Procedures Radiology/Procedures []PROCEDURE: CT HEAD AND MAXILLOFACIAL WO CT HEAD AND MAXILLOFACIAL WO Date: 03/13/2019 3:41 PM Clinical Indication: Fall with injury to left head and face Comparison: None. Technique: 5 mm axial tomographic images were obtained of the head without contrast. These were viewed on brain and bone windows. Axial helical images of the face were obtained without contrast. Axial and coronal reconstruction was performed. One or more of the following dose reduction techniques were utilized: Automated exposure control (AEC), Adjustment of mA and/or kV according to patient size, Use of iterative reconstruction technique such as ASiR, CT scan done according to ALARA and image gently/image wisely CT HEAD FINDINGS: Mild nonspecific periventricular hypoattenuation is most consistent with chronic small vessel ischemic disease. Mild generalized cerebral and cerebellar volume loss. Left inferior putamen probable perivascular space. Right frontal convexity prominent dural calcification versus incidental tiny calcified meningioma measuring 5 x 3 mm. No acute hemorrhage. The ventricles are normal in size, shape, and morphology. The bourne-white matter junction is normal. The basilar cisterns are patent. The mastoid air cells are clear. No aggressive osseous lesion or fracture. CT FACE FINDINGS: There is no acute facial bone fracture. Left facial soft tissue swelling. The paranasal sinuses are clear. The orbits are normal. The globes are intact. Degenerative changes of the right temporomandibular joint with remodeling of the condylar head. Impression: 1. No acute intracranial process. 2. No acute facial bone fracture. Left facial soft tissue swelling. Electronically signed by: Jailene Ziegler MD (03/13/2019 4:18 PM) [facility] DICTATED and SIGNED BY: JAILENE ZIEGLER MD DATE: 03/13/19 1617 Course & Med Decision Making Course & Med Decision Making Pertinent Labs and Imaging studies reviewed. (See chart for details) This is a 84-year-old female patient presenting to the ED today with facial contusion after falling. No loss of consciousness. CT of the head and maxillary facial and negative for any acute findings. Patient was discharged to home. Ice recommended to the area. OTC pain relievers. Tetanus updated. Dragon Disclaimer Dragon Disclaimer This electronic medical record was generated, in whole or in part, using a voice recognition dictation system. Departure Departure Impression: Primary Impression: Fall from standing Additional Impression: Facial contusion Disposition: 01 HOME, SELF-CARE Condition: STABLE Referrals: JODI WINN MD (PCP) follow up in one week with your doctor Patient Instructions: Contusion, [id number] Additional Instructions: You were evaluated in the emergency room and noted to have facial contusions. Try to ice and elevate your face. Take your Tramadol at home as needed for pain. Follow-up with your doctor in 1-2 weeks. Problem Qualifiers Primary Impression: Fall from standing Encounter type: initial encounter Qualified Codes: W19.XXXA - Unspecified fall, initial encounter Additional Impression: Facial contusion Encounter type: initial encounter Qualified Codes: S00.83XA - Contusion of other part of head, initial encounter KAR BURRELL APRN Mar 13, 2019 15:52
--- NOTE | 2019-03-13 16:22 | RAD ---
CT HEAD AND MAXILLOFACIAL WO Date: 03/13/2019 3:41 PM Clinical Indication: Fall with injury to left head and face Comparison: None. Technique: 5 mm axial tomographic images were obtained of the head without contrast. These were viewed on brain and bone windows. Axial helical images of the face were obtained without contrast. Axial and coronal reconstruction was performed. One or more of the following dose reduction techniques were utilized: Automated exposure control (AEC), Adjustment of mA and/or kV according to patient size, Use of iterative reconstruction technique such as ASiR, CT scan done according to ALARA and image gently/image wisely CT HEAD FINDINGS: Mild nonspecific periventricular hypoattenuation is most consistent with chronic small vessel ischemic disease. Mild generalized cerebral and cerebellar volume loss. Left inferior putamen probable perivascular space. Right frontal convexity prominent dural calcification versus incidental tiny calcified meningioma measuring 5 x 3 mm. No acute hemorrhage. The ventricles are normal in size, shape, and morphology. The bourne-white matter junction is normal. The basilar cisterns are patent. The mastoid air cells are clear. No aggressive osseous lesion or fracture. CT FACE FINDINGS: There is no acute facial bone fracture. Left facial soft tissue swelling. The paranasal sinuses are clear. The orbits are normal. The globes are intact. Degenerative changes of the right temporomandibular joint with remodeling of the condylar head. Impression: 1. No acute intracranial process. 2. No acute facial bone fracture. Left facial soft tissue swelling. Electronically signed by: Darwin Ziegler MD (03/13/2019 4:18 PM) [facility]
[2019-03-13 16:57] VITALS: BP 130/58
== END 2019-03-13 17:30 | disposition home or self-care (01) ==
LOC: ER 15:10
DX: S00.83XA Contusion of other part of head, initial encounter (principal); M19.90 Unspecified osteoarthritis, unspecified site; I10 Essential (primary) hypertension; Z90.49 Acquired absence of other specified parts of digestive tract; Z90.710 Acquired absence of both cervix and uterus; Z96.659 Presence of unspecified artificial knee joint; Z88.2 Allergy status to sulfonamides; Z88.1 Allergy status to other antibiotic agents; Z88.8 Allergy status to other drugs, medicaments and biological substances; Z91.041 Radiographic dye allergy status; W18.39XA Other fall on same level, initial encounter; Y93.01 Activity, walking, marching and hiking; Y92.89 Other specified places as the place of occurrence of the external cause; Y99.8 Other external cause status
CPT/HCPCS: 70450; 70486; 99284